=== PATIENT | female | born 1990 | race Two or more races ===

== ENCOUNTER 2021-08-06 16:49 | Emergency (ER) | payer OTHER ==
[~2021-08-06] VITALS: Ht 167.6 cm; Wt 111.1 kg
[2021-08-06] MEDS ORDERED: PRENATAL + DHA1 EAC1 PO (17:07)
[2021-08-06] MEDS ORDERED: ANALPRAM HC 2.530 GM RECTAL (17:50)
== END 2021-08-06 17:50 | disposition home or self-care (01) ==
LOC: ER 16:49
DX: O22.41 Hemorrhoids in pregnancy, first trimester (principal); Z3A.01 Less than 8 weeks gestation of pregnancy

== ENCOUNTER 2021-08-18 06:11 | Day surgery (SDC) | payer OTHER ==
[~2021-08-18] VITALS: Ht 167.6 cm; Wt 113.4 kg
[~2021-08-18 06:11] MED LIST: ANALPRAM HC 2.530 GM RECTAL; PRENATAL + DHA1 EAC1 PO
== END 2021-08-18 22:15 | disposition home or self-care (01) ==
LOC: ER 06:11 → CIR.AMB 13:16
PROVIDERS: ATTEND Specialist
DX: O02.0 Blighted ovum and nonhydatidiform mole (principal); Z20.822 Contact with and (suspected) exposure to COVID-19